=== PATIENT | female | born 1970 | race Caucasian/White ===

== ENCOUNTER 2019-01-01 18:36 | Emergency (ER) | payer OTHER ==
[2019-01-01] MEDS ORDERED: KETOROLAC TROMETHAMINE 60 MG/2 ML SDV IM ONE (20:21)
--- NOTE | 2019-01-01 20:23 | ER Document Report ---
ED Medical Screen (RME) - General Chief Complaint: Back Pain Stated Complaint: BACK PAIN Time Seen by Provider: 01/01/19 20:21 Mode of Arrival: Wheelchair Information source: Patient TRAVEL OUTSIDE OF THE [place] IN LAST 30 DAYS: No - HPI Patient complains to provider of: LBP Onset: Other - pt. with 3 day h/o R-sided LBP with radiation down R leg. Denies trauma, change in bowel or bladder - Related Data Allergies/Adverse Reactions: No Known Allergies Allergy (Unverified 01/01/19 18:45) Physical Exam - Vital signs Vitals: Temp Pulse Resp BP Pulse Ox 98.4 F 98 16 163/78 H 97 01/01/19 19:21 01/01/19 19:21 01/01/19 19:21 01/01/19 19:21 01/01/19 19:21 Course - Vital Signs Vital signs: Temp Pulse Resp BP Pulse Ox 98.4 F 98 16 163/78 H 97 01/01/19 19:21 01/01/19 19:21 01/01/19 19:21 01/01/19 19:21 01/01/19 19:21
--- NOTE | 2019-01-01 20:57 | RADIOLOGY REPORT (SQ) ---
EXAM DESCRIPTION: CT LUMBAR SPINE WITHOUT IV CONTRAST COMPLETED DATE/TME: 01/01/2019 20:21 CLINICAL HISTORY: 48 years, Female, LBP with radiculopathy This exam was performed according to our departmental dose-optimization program which includes automated exposure control, adjustment of the mA and/or kVp according to patient size and/or use of iterative reconstruction technique where applicable. FINDINGS: Vertebral body heights are intact. Alignment is intact. No subluxation. Moderate degenerative changes L4-5 and L5-S1. Facets are normally aligned. IMPRESSION: Mild to moderate degenerative changes. No fracture.
[2019-01-01 21:26] LABS: APPEARANCE,URINE CLEAR; BILIRUBIN,URINE NEGATIVE (NEGATIVE); COLOR,URINE YELLOW; GLUCOSE, URINE NEGATIVE (NEGATIVE); KETONES,URINE NEGATIVE (NEGATIVE); LEUKOCYTE ESTERASE,URINE NEGATIVE (NEGATIVE); NITRITE,URINE NEGATIVE (NEGATIVE); PROTEIN,URINE NEGATIVE (NEGATIVE); URINE SPECIFIC GRAVITY 1.018; UROBILINOGEN,URINE NEGATIVE mg/dL (<2.0)
[2019-01-01 22:28] VITALS: BP 174/88
[2019-01-01] MEDS ORDERED: LIDOCAINE 5% (700 MG) TRANSDERMAL ADH..PATCH TP ONE (22:30)
[2019-01-01] MEDS ORDERED: CYCLOBENZAPRINE HCL 10 MG TABLET PO ONE (22:30)
--- NOTE | 2019-01-01 22:33 | ER Document Report ---
HPI - HPI Patient complains to provider of: right leg pain Time Seen by Provider: 01/01/19 20:21 Pain Level: 4 Context: Patient is a 48-year-old female presents to the emergency department for right lower back pain radiating down her right posterior leg. Patient states she has been to her primary care provider before told that it was sciatic nerve pain. States she is here visiting and had a flareup of her pain for the last 3 days. States she is taking Motrin at home which has not relieved the pain. Patient is denying any loss of bowel or bladder, or urinary retention. Patient denies any history of IV drug use. - REPRODUCTIVE Reproductive: DENIES: : - DERM Skin Color: Normal Past Medical History - General Information source: Patient - Social History Smoking Status: Never Smoker Frequency of alcohol use: None Drug Abuse: None Family History: Reviewed & Not Pertinent Patient has suicidal ideation: No Patient has homicidal ideation: No - Past Medical History Cardiac Medical History: Reports: Hx Hypertension Renal/ Medical History: Denies: Hx Peritoneal Dialysis Psychiatric Medical History: Reports: Hx Depression Past Surgical History: Reports: Hx Tubal Ligation Vertical Provider Document - CONSTITUTIONAL Agree With Documented VS: Yes Notes: GENERAL: Alert, interacts well. HEAD: Normocephalic, atraumatic. EYES: Pupils equal, round, and reactive to light. Extraocular movements intact. ENT: Oral mucosa moist, tongue midline. NECK: Full range of motion. Supple. Trachea midline. LUNGS: Clear to auscultation bilaterally, no wheezes, rales, or rhonchi. No respiratory distress. HEART: Regular rate and rhythm. No murmur ABDOMEN: Soft, non-tender. Non-distended. Bowel sounds present in all 4 quadra nts. EXTREMITIES: Moves all 4 extremities spontaneously. No edema, normal radial and dorsalis pedis pulses bilaterally. No cyanosis. 5 out of 5 strength all 4 extremities BACK: no cervical, thoracic, lumbar midline tenderness. No saddle anesthesia, normal distal neurovascular exam. Patient has right paraspinal lumbar tenderness radiating down her right buttocks. NEUROLOGICAL: Alert and oriented x3. Normal speech. cranial nerves II through XII grossly intact PSYCH: Normal affect, normal mood. SKIN: Warm, dry, normal turgor. No rashes or lesions noted. - INFECTION CONTROL TRAVEL OUTSIDE OF THE [place] IN LAST 30 DAYS: No Course - Re-evaluation Re-evalutation: Patient had to be seen by RME provider. CT lumbar spine and IM Toradol administered. Patient states Toradol has helped her pain slightly but she still feels discomfort. Discussed use of Flexeril and Lidoderm patches. Patient's CT imaging is negative for fractures. Discussed need for close follow-up with primary care provider and inevitably orthopedics. Patient states she is flying home on Wednesday and will follow up with her primary care provider when she returns home. 01/01/19 22:32 Presentation of a well appearing patient complaining of acute on chronic back pain. No rapid progression of symptoms, systemic symptoms including fevers, chills, weight loss, history of recent bacterial infection, bilateral symptoms, numbness, weakness, difficulty walking, urinary retention or bowel incontinence, personal history of cancer, immunosuppression, diabetes, known AAA, or history of IV drug use. Exam is without point tenderness over vertebral bodies, pulsatile abdominal mass, and patient has symmetric and intact lower extremity strength, sensation, and reflexes without clonus. 2+ symmetric medial malleolar and dorsalis pedis pulses Based on history and physical, I have a very low suspicion of a concerning e tiology of pain including epidural compression syndrome, spinal infection, transverse myelitis, malignancy, abdominal aortic aneurysm, renal colic, acute lower extremity claudication, neurogenic claudication, ankylosing spondylitis, or other intra-abdominal process. - Vital Signs Vital signs: Temp Pulse Resp BP Pulse Ox 98.3 F 88 18 174/88 H 98 01/01/19 22:19 01/01/19 22:19 01/01/19 22:19 01/01/19 22:19 01/01/19 22:19 - Laboratory Laboratory results interpreted by me: 01/01/19 21:00 Urine Ascorbic Acid 40 H Discharge - Discharge Clinical Impression: Sciatica Qualifiers: Laterality: right Qualified Code(s): M54.31 - Sciatica, right side Condition: Stable Disposition: HOME, SELF-CARE Instructions: Low Back Pain ([facility]), Sciatica ([facility]), Stretching Exercises for the Back ([facility]), Toradol Injection ([facility]), Warm Packs ([facility]) Additional Instructions: As we discussed you have been seen and treated in the emergency department for your potential sciatic back pain. Please make sure you take medications as prescribed and use the stretches that are given to in this paperwork. Please also follow-up with your orthopedic provider when you return home. You do need an MRI of your lower back and unfortunately we do not do those in the emergency room. Please return to the ER should you have any other concerning symptoms to include but not limited to loss of bowel or bladder or urinary retention. Prescriptions: Ketorolac Tromethamine [Toradol 10 mg Tablet] 10 mg PO Q8HP PRN #24 tablet PRN Reason: Cyclobenzaprine HCl [Flexeril 10 mg Tablet] 10 mg PO TIDP PRN #20 tab PRN Reason:
== END 2019-01-01 22:39 | disposition home or self-care (01) ==
LOC: ER 18:36
DX: M54.31 Sciatica, right side (principal); G89.29 Other chronic pain; I10 Essential (primary) hypertension; Z98.51 Tubal ligation status
CPT/HCPCS: 99284; 96372; 81001; 72131; J1885